=== PATIENT | female | born 1945 | race Caucasian/White ===

== ENCOUNTER → 2017-07-01 | Outpatient (CLI) | payer MEDICARE | END | disposition home or self-care (01) | LOC: CFH 12:31 | PROVIDERS: ATTEND Nurse Practitioner Primary Care | DX: Z13.820 Encounter for screening for osteoporosis (principal); M85.88 Other specified disorders of bone density and structure, other site; E03.9 Hypothyroidism, unspecified; E78.2 Mixed hyperlipidemia; I10 Essential (primary) hypertension; Z79.890 Hormone replacement therapy | CPT/HCPCS: 76536; 77080 ==

== ENCOUNTER 2018-02-14 11:16 | Observation (INO) | payer MEDICARE ==
[~2018-02-14] VITALS: Ht 167.6 cm; Wt 59.0 kg
[2018-02-14] MEDS ORDERED: SODIUM CHLORIDE FLUSH 10ML SYR IVF ONE (11:30)
[2018-02-14] MEDS ORDERED: LISI-167 PO (11:50)
[2018-02-14] MEDS ORDERED: THYR90TA PO (11:50)
[2018-02-14] MEDS ORDERED: APIX5TAB PO (11:50)
[2018-02-14] MEDS ORDERED: ATOR40TA78 PO (11:50)
[2018-02-14] MEDS ORDERED: METO25TA2 PO (11:50)
[2018-02-14 11:58] LABS: BASOPHILS # (AUTO) 0.06 x10^3/uL (0-0.1); BASOPHILS % (AUTO) 1 % (0-1); EOSINOPHILS # (AUTO) 0.13 x10^3/uL (0-0.4); EOSINOPHILS % (AUTO) 2 % (1-7); LYMPHOCYTES # (AUTO) 1.47 x10^3/uL (1-3.4); LYMPHOCYTES % (AUTO) 16 % (22-44); MD NO; MEAN CORPUSCULAR HEMOGLOBIN 31.8 pg (27.0-34.8); MEAN CORPUSCULAR HGB CONC 33.3 g/dL (32.4-35.8); MEAN CORPUSCULAR VOLUME 95.4 fL (80-100); MEAN PLATELET VOLUME 8.4 fL (7.4-10.4); MONOCYTES # (AUTO) 0.69 x10^3/uL (0.2-0.8); MONOCYTES % (AUTO) 8 % (2-9); NEUTROPHILS # (AUTO) 6.62 x10^3/uL (1.8-6.8); NEUTROPHILS % (AUTO) 74 % (42-75); PLATELET COUNT 303 x10^3/uL (130-400); RED BLOOD COUNT 4.95 x10^6/uL (3.82-5.3); RED CELL DISTRIBUTION WIDTH 12.6 % (9.6-15.2)
[2018-02-14 12:11] LABS: ALBUMIN 3.6 g/dL (3.4-5.0); ANION GAP 9 mmol/L (5-15); CALCIUM 8.5 mg/dL (8.5-10.1); CHLORIDE 107 mmol/L (98-107)
[2018-02-14 12:18] LABS: ALANINE AMINOTRANSFERASE 38 U/L (12-78); ALKALINE PHOSPHATASE 56 U/L (45-117); BILIRUBIN,TOTAL 0.9 mg/dL (0.2-1.0); CREATININE 1.07 mg/dL (0.55-1.02); TOTAL PROTEIN 7.1 g/dL (6.4-8.2); TROPONIN I < 0.015 ng/mL (0.000-0.045)
[2018-02-14 12:24] LABS: THYROID STIMULATING HORMONE 0.693 mIU/L (0.358-3.740)
[2018-02-14 15:03] LABS: MICROSCOPIC AUTO
[2018-02-14 15:09] LABS: CULTURE INDICATED? YES
[2018-02-14] MEDS ORDERED: LABETALOL 5MG/ML, 20ML IVPush PRN (16:00)
[2018-02-14] MEDS ORDERED: DILTIAZEM 5 MG/ML, 5ML IVPush PRN (16:00)
[2018-02-14] MEDS ORDERED: ACETAMINOPHEN 325 MG TABLET PO PRN (16:00)
[2018-02-14] MEDS ORDERED: ONDANSETRON 2MG/ML, 2ML IVPush PRN (16:00)
[2018-02-14] MEDS ORDERED: POLYETHYLENE GLYCOL 17 GM PACKET PO PRN (16:00)
[2018-02-14] MEDS: SODIUM CHLORIDE 0.9% 1,000 ML IV SCH (17:15)
[2018-02-14] MEDS ORDERED: ASPI-496 PO (17:18)
[2018-02-14 17:25] VITALS: BP 121/71
[2018-02-14 19:00] VITALS: BP 107/67
[2018-02-14] MEDS ORDERED: MELATONIN 5 MG TABLET PO ONE (21:00)
[2018-02-14] MEDS ORDERED: ATORVASTATIN 40 MG TABLET PO SCH (21:00)
[2018-02-14] MEDS: APIXABAN 5 MG TABLET PO SCH (21:40)
[2018-02-14 22:58] LABS: TROPONIN I 0.017 ng/mL (0.000-0.045)
[2018-02-15] VITALS (9 sets, daily range): BP systolic 107–126; BP diastolic 56–82
[2018-02-15] MEDS: SODIUM CHLORIDE 0.9% 1,000 ML IV SCH (05:34)
[2018-02-15] MEDS: APIXABAN 5 MG TABLET PO SCH (08:14)
[2018-02-15] MEDS ORDERED: METOPROLOL SUCCINATE 25 MG TAB.ER.24H PO SCH (09:00)
[2018-02-15] MEDS ORDERED: APIXABAN 5 MG TABLET PO SCH (09:00)
[2018-02-15] MEDS ORDERED: THYROID 30 MG TABLET PO SCH (09:00)
== END 2018-02-15 18:35 | disposition home or self-care (01) ==
LOC: ED 14:43 → INTOOBSV 15:35 → EDIP 15:35 → SUATTDRO 15:52 → 5SO 16:54
PROVIDERS: ADMIT Hospitalist; ATTEND Hospitalist
DX: I48.0 Paroxysmal atrial fibrillation (principal); R42 Dizziness and giddiness; E03.9 Hypothyroidism, unspecified; I25.10 Atherosclerotic heart disease of native coronary artery without angina pectoris; R31.29 Other microscopic hematuria; I10 Essential (primary) hypertension; Z86.73 Personal history of transient ischemic attack (TIA), and cerebral infarction without residual deficits; Z87.891 Personal history of nicotine dependence; Z95.5 Presence of coronary angioplasty implant and graft; Z90.710 Acquired absence of both cervix and uterus; Z79.82 Long term (current) use of aspirin; Z79.899 Other long term (current) drug therapy
CPT/HCPCS: 36415; 71045; 80053; 81001; 84439; 84443; 84484; 85025; 87086; 93005; 93306; 96360; 96361; 99285; G0378; J7030

== ENCOUNTER → 2018-02-28 | Outpatient (CLI) | payer MEDICARE ==
[~2018-02-28] MED LIST: APIX5TAB PO; ASPI-496 PO; ATOR40TA78 PO; LISI-167 PO; METO25TA2 PO; THYR90TA PO
== END | disposition home or self-care (01) ==
LOC: CFH 12:59
PROVIDERS: ATTEND Nurse Practitioner Primary Care
DX: M51.37 Other intervertebral disc degeneration, lumbosacral region (principal); M25.551 Pain in right hip; M25.552 Pain in left hip; E78.2 Mixed hyperlipidemia; E03.9 Hypothyroidism, unspecified; I10 Essential (primary) hypertension; E55.9 Vitamin D deficiency, unspecified; Z79.899 Other long term (current) drug therapy
CPT/HCPCS: 72100; 73523

== ENCOUNTER → 2018-04-05 | Outpatient (CLI) | payer MEDICARE | END | disposition home or self-care (01) | LOC: CFH 12:01 | PROVIDERS: ATTEND Internal Medicine | DX: M47.896 Other spondylosis, lumbar region (principal) | CPT/HCPCS: 72148 ==

== ENCOUNTER → 2018-04-14 | Outpatient (CLI) | payer MEDICARE ==
[~2018-04-14] MED LIST changes: +OMNIPAQUE 350 MG/ML, 100ML BOTTLE ONE
== END | disposition home or self-care (01) ==
LOC: CFH 08:08
PROVIDERS: ATTEND Nurse Practitioner Primary Care
DX: I72.3 Aneurysm of iliac artery (principal); R93.5 Abnormal findings on diagnostic imaging of other abdominal regions, including retroperitoneum
CPT/HCPCS: 74177; Q9967

== ENCOUNTER → 2018-05-18 | Outpatient (CLI) | payer MEDICARE ==
[~2018-05-18] MED LIST changes: -OMNIPAQUE 350 MG/ML, 100ML BOTTLE ONE
== END | disposition home or self-care (01) ==
LOC: CFH 15:29
PROVIDERS: ATTEND Nurse Practitioner Primary Care
DX: M19.011 Primary osteoarthritis, right shoulder (principal); M25.711 Osteophyte, right shoulder; E03.9 Hypothyroidism, unspecified; E78.2 Mixed hyperlipidemia; I10 Essential (primary) hypertension; I48.91 Unspecified atrial fibrillation; Z79.899 Other long term (current) drug therapy

== ENCOUNTER → 2018-06-29 | Outpatient (CLI) | payer MEDICARE | END | disposition home or self-care (01) | LOC: CFH 15:02 | PROVIDERS: ATTEND Nurse Practitioner Family | DX: M47.812 Spondylosis without myelopathy or radiculopathy, cervical region (principal) | CPT/HCPCS: 72050 ==

== ENCOUNTER 2019-10-10 11:00 | Outpatient (CLI) | payer MEDICARE | END 2019-10-10 23:59 | disposition home or self-care (01) | LOC: CFH 11:00 | PROVIDERS: ATTEND Nurse Practitioner Primary Care | DX: M81.8 Other osteoporosis without current pathological fracture (principal); M85.80 Other specified disorders of bone density and structure, unspecified site; I10 Essential (primary) hypertension; E78.2 Mixed hyperlipidemia; E55.9 Vitamin D deficiency, unspecified; E03.9 Hypothyroidism, unspecified; Z79.899 Other long term (current) drug therapy | CPT/HCPCS: 77080 ==

== ENCOUNTER 2020-05-17 16:32 | Emergency (ER) | payer MEDICARE ==
[~2020-05-17] VITALS: Ht 170.2 cm; Wt 64.2 kg
--- NOTE | 2020-05-17 16:44 | NUR ---
PARI ([facility]) [phone]
[2020-05-17] MEDS ORDERED: PROPOFOL 10 MG/ML, 20ML ONE (16:47)
[2020-05-17] MEDS ORDERED: PLEASE ENTER HEIGHT AND WEIGHT MC SCH (17:00)
[2020-05-17] MEDS ORDERED: PROPOFOL 10 MG/ML, 20ML IVPush ONE (17:00)
--- NOTE | 2020-05-17 17:02 | NUR ---
PT SENT FROM DR WYNNE OFFICE FOR CARDIOVERSION OF A-FIB. PT TO TRAUMA 2 PLACED ON ETCO2, O2, NIBP, AND CARDIAC MONITORING. BVM AND SUCTION AT BEDSIDE. PT PLACED ON ZOLL PADS. CONSENT SIGNED AND AT BEDSIDE.
[2020-05-17 17:22] VITALS: BP 134/78
[2020-05-17 17:33] LABS: BASOPHILS % (AUTO) 1 % (0-1); EOSINOPHILS % (AUTO) 1 % (1-7); LYMPHOCYTES % (AUTO) 22 % (22-44); MEAN CORPUSCULAR HEMOGLOBIN 32.9 pg (27.0-34.8); MEAN CORPUSCULAR HGB CONC 34.1 g/dL (32.4-35.8); MEAN PLATELET VOLUME 8.5 fL (7.4-10.4); MONOCYTES % (AUTO) 9 % (2-9); NEUTROPHILS % (AUTO) 68 % (42-75); PLATELET COUNT 342 x10^3/uL (130-400); RED BLOOD COUNT 5.31 x10^6/uL (3.82-5.3); RED CELL DISTRIBUTION WIDTH 12.5 % (9.6-15.2)
[2020-05-17 17:34] LABS: MD NO
[2020-05-17 17:47] LABS: ALBUMIN 4.9 g/dL (3.4-5.0); ANION GAP 7 mmol/L (5-15); CALCIUM 10.5 mg/dL (8.5-10.1); CHLORIDE 102 mmol/L (98-107)
--- NOTE | 2020-05-17 17:50 | NUR ---
LATE NOTE 1720: POST IV PT APPEARS TO BE IN A SINUS RHYTHM. EKG PERFORMED AND MD MADE AWARE. LABS SENT AND AWAITING.
[2020-05-17 17:57] LABS: CREATININE 1.22 mg/dL (0.55-1.02); TROPONIN I < 0.015 ng/mL (0.000-0.045)
== END 2020-05-17 18:40 | disposition home or self-care (01) ==
LOC: ED 18:15
DX: I48.0 Paroxysmal atrial fibrillation (principal); R42 Dizziness and giddiness; R00.2 Palpitations; E03.9 Hypothyroidism, unspecified; I10 Essential (primary) hypertension; Z86.73 Personal history of transient ischemic attack (TIA), and cerebral infarction without residual deficits; Z90.710 Acquired absence of both cervix and uterus; Z87.891 Personal history of nicotine dependence
CPT/HCPCS: 36415; 80048; 82040; 84443; 84484; 85025; 93005; 99284

== ENCOUNTER 2020-07-08 09:00 | Inpatient (IN) | payer MEDICARE ==
[~2020-07-08] VITALS: Ht 170.2 cm; Wt 64.0 kg
[2020-07-08 09:52] VITALS: BP 141/76
[2020-07-08] MEDS ORDERED: CHLO25TA PO (13:00)
[2020-07-08] MEDS ORDERED: METO-264 PO (13:00)
[2020-07-08] MEDS ORDERED: TRIA10.8 NAS (13:00)
[2020-07-08] MEDS ORDERED: GABA-827 PO (13:04)
[2020-07-08] MEDS ORDERED: TRAZ-96 PO (13:04)
[2020-07-08] MEDS ORDERED: ACET650S21 PO (13:07)
[2020-07-08] MEDS ORDERED: METH-640 PO (13:07)
[2020-07-08 13:52] LABS: ANION GAP 6 mmol/L (5-15); CALCIUM 9.6 mg/dL (8.5-10.1); CHLORIDE 103 mmol/L (98-107); CHOLESTEROL, TOTAL 140 mg/dL (140-239); TRIGLYCERIDES 128 mg/dL (50-200); VLDL CHOLESTEROL 26 mg/dL (0-25)
[2020-07-08 14:01] LABS: CHOL/HDL RATIO 2.2; FREE T4 (FREE THYROXINE) 0.81 ng/dL (0.76-1.46); HDL CHOL % 46 % (28-40); HDL CHOLESTEROL (DIRECT) 65 mg/dL (40-60); LDL CHOLESTEROL,CALCULATED 49 mg/dL (54-169); LDL/HDL RATIO 0.8 (0.5-3.0)
[2020-07-08 15:25] VITALS: BP 125/69
[2020-07-08] MEDS: SOTALOL 80MG TABLET PO SCH (18:07)
[2020-07-08 19:13] VITALS: BP 118/82
[2020-07-08] MEDS: TRAZODONE 50MG TABLET PO SCH (20:17)
[2020-07-08] MEDS: APIXABAN 5 MG TABLET PO SCH (20:17)
[2020-07-08] MEDS: ATORVASTATIN 40 MG TABLET PO SCH (20:17)
[2020-07-08] MEDS: GABAPENTIN 300 MG CAPSULE PO SCH (20:55)
[2020-07-08] MEDS: ASPIRIN 81 MG TABLET EC PO SCH (20:55)
[2020-07-08] MEDS ORDERED: GABAPENTIN 400 MG CAPSULE PO SCH (21:00)
[2020-07-09 01:57] VITALS: BP 121/80
[2020-07-09] MEDS: SOTALOL 80MG TABLET PO SCH ×3 (06:00→20:03)
[2020-07-09] MEDS ORDERED: ASPIRIN 81 MG TABLET EC PO SCH (06:00)
[2020-07-09] MEDS ORDERED: ACETAMINOPHEN 325 MG TABLET ONE ×2 (06:02→16:31)
[2020-07-09] MEDS: ACETAMINOPHEN 650 MG/20.3 ML UDC PO PRN ×2 (06:03→16:32)
[2020-07-09] MEDS: THYROID 30 MG TABLET PO SCH (06:07)
[2020-07-09 07:59] VITALS: BP 109/62
[2020-07-09] MEDS: CHLORTHALIDONE 25 MG TABLET PO SCH (08:19)
[2020-07-09] MEDS: METHOCARBAMOL 750 MG TABLET PO SCH (08:19)
[2020-07-09] MEDS: APIXABAN 5 MG TABLET PO SCH ×2 (08:19→20:02)
[2020-07-09 13:15] VITALS: BP 111/72
[2020-07-09] MEDS ORDERED: SOTALOL 80MG TABLET PO SCH (18:00)
[2020-07-09 19:10] VITALS: BP 107/62
[2020-07-09] MEDS: GABAPENTIN 300 MG CAPSULE PO SCH (20:02)
[2020-07-09] MEDS: ASPIRIN 81 MG TABLET EC PO SCH (20:02)
[2020-07-09] MEDS: TRAZODONE 50MG TABLET PO SCH (20:03)
[2020-07-09] MEDS: ATORVASTATIN 40 MG TABLET PO SCH (20:03)
[2020-07-10 00:23] VITALS: BP 103/69
[2020-07-10 00:27] VITALS: BP 120/71
[2020-07-10] MEDS: THYROID 30 MG TABLET PO SCH (05:38)
[2020-07-10 07:51] VITALS: BP 123/72
[2020-07-10] MEDS: ACETAMINOPHEN 650 MG/20.3 ML UDC PO PRN (08:39)
[2020-07-10] MEDS: METHOCARBAMOL 750 MG TABLET PO SCH (08:39)
[2020-07-10] MEDS: APIXABAN 5 MG TABLET PO SCH (08:39)
[2020-07-10] MEDS: CHLORTHALIDONE 25 MG TABLET PO SCH (08:39)
[2020-07-10] MEDS: SOTALOL 80MG TABLET PO SCH (08:45)
[2020-07-10] MEDS ORDERED: SOTA80TA18 PO (11:13)
== END 2020-07-10 13:39 | disposition home or self-care (01) | DRG 309 ==
LOC: 5SO 09:28 → DCLOUNGE 07-10 13:29
PROVIDERS: ADMIT Internal Medicine Clinical Cardiac Electrophysiology; ATTEND Internal Medicine Clinical Cardiac Electrophysiology
DX: I48.0 Paroxysmal atrial fibrillation (principal); D68.69 Other thrombophilia; I48.92 Unspecified atrial flutter; I25.10 Atherosclerotic heart disease of native coronary artery without angina pectoris; E03.9 Hypothyroidism, unspecified; E78.5 Hyperlipidemia, unspecified; Z87.891 Personal history of nicotine dependence; Z95.5 Presence of coronary angioplasty implant and graft
CPT/HCPCS: 36415; 71045; 80048; 80061; 84439; 84443; 85014; 85018; 93005; G0378

== ENCOUNTER → 2020-11-18 | Outpatient (CLI) | payer MEDICARE ==
[~2020-11-18] MED LIST changes: +ACET650S21 PO; +CHLO25TA PO; +COLC0.6C3 PO; +GABA-827 PO; +METH-640 PO; +METO-264 PO; +OMNIPAQUE 350 MG/ML, 150 ML BOTTLE ONE; +PANT20TA2 PO; +SOTA80TA18 PO; +TRAZ-96 PO; +TRIA10.8 NAS
== END | disposition home or self-care (01) ==
LOC: CFH 13:47
PROVIDERS: ATTEND Internal Medicine Clinical Cardiac Electrophysiology
DX: I48.0 Paroxysmal atrial fibrillation (principal)
CPT/HCPCS: 75572; 82565; Q9967

== ENCOUNTER 2020-11-19 10:53 | Observation (INO) | payer MEDICARE ==
[~2020-11-19] VITALS: Ht 170.2 cm; Wt 63.6 kg
[~2020-11-19 10:53] MED LIST changes: -COLC0.6C3 PO; -OMNIPAQUE 350 MG/ML, 150 ML BOTTLE ONE; -PANT20TA2 PO
[2020-11-19] MEDS ORDERED: SODIUM CHLORIDE 0.9% 1,000 ML IV SCH (12:30)
[2020-11-19 12:38] VITALS: BP 165/69
[2020-11-19] MEDS ORDERED: FENTANYL PF 250 MCG/5ML ONE (12:57)
[2020-11-19 13:06] LABS: BASOPHILS % (AUTO) 1 % (0-1); EOSINOPHILS % (AUTO) 2 % (1-7); LYMPHOCYTES % (AUTO) 20 % (22-44); MEAN CORPUSCULAR HEMOGLOBIN 32.9 pg (27.0-34.8); MEAN CORPUSCULAR HGB CONC 34.4 g/dL (32.4-35.8); MEAN PLATELET VOLUME 8.1 fL (7.4-10.4); MONOCYTES % (AUTO) 8 % (2-9); NEUTROPHILS % (AUTO) 69 % (42-75); PLATELET COUNT 245 x10^3/uL (130-400); RED BLOOD COUNT 4.62 x10^6/uL (3.82-5.3); RED CELL DISTRIBUTION WIDTH 12.9 % (9.6-15.2)
[2020-11-19] MEDS ORDERED: PROTAMINE SULFATE 10 MG/ML, 5ML ONE (13:06)
[2020-11-19] MEDS ORDERED: LIDOCAINE 2%, 20ML ONE (13:06)
[2020-11-19 13:17] LABS: ANION GAP 5 mmol/L (5-15); CALCIUM 10.2 mg/dL (8.5-10.1); CHLORIDE 100 mmol/L (98-107)
[2020-11-19 13:18] LABS: CREATININE 0.85 mg/dL (0.55-1.02)
[2020-11-19] MEDS ORDERED: DEXAMETHASONE 4 MG/ML, 1ML ONE (13:52)
[2020-11-19] MEDS ORDERED: ONDANSETRON 2MG/ML, 2ML ONE (13:52)
[2020-11-19] MEDS ORDERED: SUCCINYLCHOLINE 20 MG/ML, 10ML ONE (13:52)
[2020-11-19] MEDS ORDERED: ROCURONIUM 10MG/ML,5ML ONE (13:52)
[2020-11-19] MEDS ORDERED: PROPOFOL 10 MG/ML, 20ML ONE (13:52)
[2020-11-19] MEDS ORDERED: HEPARIN 1,000 UNITS/ML, 10ML ONE ×2 (13:52)
[2020-11-19] MEDS ORDERED: HYDROmorphone 1 MG/ML, 1ML INJ IVPush PRN (16:00)
[2020-11-19] MEDS ORDERED: EPHEDRINE 50 MG/ML, 1ML IM PRN (16:00)
[2020-11-19] MEDS ORDERED: MEPERIDINE/PF 25MG/0.5ML IVPush PRN (16:00)
[2020-11-19] MEDS ORDERED: ACETAMINOPHEN 325 MG TABLET PO PRN ×2 (16:00→21:00)
[2020-11-19] MEDS ORDERED: DIPHENHYDRAMINE 50 MG/ML, 1ML IVPush PRN (16:00)
[2020-11-19] MEDS ORDERED: OXYcodone 5 MG/5 ML ORAL.SOL UDC PO PRN (16:00)
[2020-11-19] MEDS ORDERED: DIAZEPAM 5 MG/ML, 2ML IVPush PRN (16:00)
[2020-11-19] MEDS ORDERED: EPHEDRINE 50 MG/ML, 1ML IVPush PRN (16:00)
[2020-11-19] MEDS ORDERED: FENTANYL PF 100 MCG/2ML IV PRN (16:00)
[2020-11-19] MEDS ORDERED: ONDANSETRON 2MG/ML, 2ML IVPush PRN (16:00)
[2020-11-19] MEDS ORDERED: PROMETHAZINE 25 MG/ML, 1ML IVPush PRN (16:00)
[2020-11-19] MEDS ORDERED: LABETALOL 5MG/ML, 20ML IV PRN (16:00)
[2020-11-19] MEDS ORDERED: PANTOPRAZOLE 20MG TABLET PO ONE (17:30)
[2020-11-19] MEDS: APIXABAN 5 MG TABLET PO SCH ×2 (18:39→21:49)
[2020-11-19] MEDS ORDERED: MEPERIDINE/PF 25MG/ML,1ML ONE (18:43)
[2020-11-19 20:00] VITALS: BP 101/58
[2020-11-19] MEDS ORDERED: ATORVASTATIN 40 MG TABLET PO SCH (21:00)
[2020-11-19] MEDS ORDERED: MEPERIDINE/PF 25MG/0.5ML IVPush ONE (21:00)
[2020-11-19] MEDS ORDERED: GABAPENTIN 300 MG CAPSULE PO SCH (21:00)
[2020-11-19] MEDS ORDERED: TRAZODONE 50MG TABLET PO PRN (21:00)
[2020-11-19] MEDS ORDERED: MEPERIDINE/PF 25MG/ML,1ML IVPush ONE (21:30)
[2020-11-19] MEDS: COLCHICINE 0.6 MG CAPSULE PO SCH (21:49)
[2020-11-19] MEDS: SOTALOL 80MG TABLET PO SCH (23:28)
[2020-11-20] MEDS ORDERED: TRAZODONE 50MG TABLET PO PRN (00:30)
[2020-11-20 01:20] VITALS: BP 107/72
[2020-11-20] MEDS: SOTALOL 80MG TABLET PO SCH (06:29)
[2020-11-20] MEDS ORDERED: COLC0.6C3 PO (08:32)
[2020-11-20] MEDS ORDERED: PANT20TA2 PO (08:32)
[2020-11-20] MEDS ORDERED: CHLORTHALIDONE 25 MG TABLET PO SCH (09:00)
[2020-11-20] MEDS: COLCHICINE 0.6 MG CAPSULE PO SCH (09:54)
[2020-11-20] MEDS: APIXABAN 5 MG TABLET PO SCH (09:54)
[2020-11-20 10:17] VITALS: BP 123/60
== END 2020-11-20 11:57 | disposition home or self-care (01) ==
LOC: CACL 10:53 → 5SO 20:00
PROVIDERS: ADMIT Internal Medicine Clinical Cardiac Electrophysiology; ATTEND Internal Medicine Clinical Cardiac Electrophysiology
DX: I48.0 Paroxysmal atrial fibrillation (principal); Z79.01 Long term (current) use of anticoagulants; Z79.899 Other long term (current) drug therapy
CPT/HCPCS: 36415; 80048; 85025; 85347; 93005; 93306; 93312; 93321; 93325; 93356; 93613; 93656; 93657; 93662; 96374; C1730; C1732; C1759; C1766; C1893; C1894; G0378; J0330; J1100; J1644; J2175; J2405; J2704; J2720; J3010; J3490